=== PATIENT | female | born 1950 | race Caucasian/White ===

== ENCOUNTER 2017-03-15 21:50 | Inpatient (IN) | payer MEDICARE, OTHER ==
[~2017-03-15] VITALS: Ht 160 cm; Wt 77.3 kg
--- NOTE | 2017-03-15 22:16 | ERA ---
ER Documentation Chief Complaint Date/Time DATE: 03/15/17 TIME: 22:16 Chief Complaint HPI 66-year-old female with a history of hypothyroidism on multiple heart valve replacements, and heart failure transferred from [place] emergency room for higher level of care. The patient reportedly fell about 4 days ago at home. She was taken to the ER and diagnosed with a left wrist fracture which was splinted. Her CT had at that time was normal. Yesterday, she had another fall. At That time she had loss of consciousness. She was taken to the ER, where she was found to have a small subdural hemorrhage and subarachnoid hemorrhage. The patient has not been having any vomiting. She does complain of a 6 out of 10 throbbing headache which has not changed. Prior to the patient 's arrival, the neurosurgeon was notified and is expecting the patient here. She denies any focal weakness or numbness. Per her family, she is acting normally. As she is on Coumadin, she received K Centra and vitamin K prior to transfer. ROS All systems reviewed and are negative except as per history of present illness. PMhx/Soc Hx Cardiac Disorders: Yes (Heart failure, valve replacements, AICD) Hx Miscellaneous Medical Probl: Yes (Hypothyroidism, osteoporosis) Hx Alcohol Use: No Hx Substance Use: No Hx Tobacco Use: No FmHx Family History: No diabetes Physical Exam Physical Exam Const: Well-appearing, nontoxic, no apparent distress Head: No hematomas, multiple facial bruises noted Eyes: Normal Conjunctiva PERRLA, EOMI ENT: Normal External Ears, Nose and Mouth. Neck: Full range of motion..~ No meningismus. No C-spine tenderness to palpation. Right clavicle tenderness to palpation with deformity. Resp: Clear to auscultation bilaterally Cardio: Regular rate and rhythm, no murmurs Abd: Soft, non tender, non distended. Normal bowel sounds Skin: Multiple facial bruises Back: No midline or flank tenderness Ext: No cyanosis, bilateral lower extremity pitting edema. Her left upper extremity is in a splint. Neur: Awake and alert and oriented 3, strength and sensations intact in all 4 extremities, cranial nerves intact Psych: Normal Mood and Affect Results 24 hrs Current Medications Medications (Trade) Dose Ordered Sig/Jerica Route PRN Reason Start Time Stop Time Status Last Admin Dose Admin Ondansetron HCl (Zofran Inj) 4 mg Q6H PRN IV NAUSEA AND/OR VOMITING 03/16/17 00:00 UNV Acetaminophen (Tylenol Tab) 650 mg Q6H PRN PO PAIN LEVEL 1-3 OR FEVER 03/16/17 00:00 UNV Morphine Sulfate (morphine) 2 mg Q4H PRN IV PAIN LEVEL 7-10 03/16/17 00:00 UNV Pantoprazole 40 mg 40 mg DAILY@06 IV 03/16/17 06:00 UNV Labetalol HCl/ Sodium Chloride (Normodyne/NS) 200 ml @ 120 mls/hr PER PROTOCOL IV 03/16/17 00:00 UNV Acetaminophen (Tylenol Tab) 650 mg Q4H PRN PO TEMP GREATER THAN 99.6F 03/16/17 00:00 UNV Docusate Sodium (Colace) 100 mg BID PO 03/16/17 09:00 UNV Procedures/MDM Patient's outside imaging and labs were reviewed. I spoke with the admitting doctor, Dr. Rojas, who is aware of the patient and was expecting her arrival. He will admit to the ICU. Other workup will be deferred to the inpatient admitting doctor and neurosurgeon. Currently the patient is hemodynamically and neurologically stable, protecting her airway, with no evidence of increased intracranial pressure. I do not think any further workup in the ED is necessary at this time. Departure Diagnosis: Primary Impression: Subarachnoid hemorrhage, traumatic Qualified Code: S06.6X1A - Traumatic subarachnoid hemorrhage with loss of consciousness of 30 minutes or less, initial encounter Additional Impressions: Subdural hematoma, post-traumatic Qualified Code: S06.5X1A - Post-traumatic subdural hematoma, with loss of consciousness of 30 minutes or less, initial encounter Multiple contusions Closed right clavicular fracture Qualified Code: S42.001A - Closed nondisplaced fracture of right clavicle, unspecified part of clavicle, initial encounter Condition: Serious CHRISTEN RITTER MD Mar 15, 2017 22:16
[2017-03-15 23:00] VITALS: TEMP 99.2
[2017-03-16] VITALS (65 sets, daily range): BP systolic 67–101; BP diastolic 37–70; PULSE 67–104; RESP 15–28; Ht 160 cm; Wt 77.3 kg
[2017-03-16] MEDS ORDERED: morphine 2 MG INJ IV PRN
[2017-03-16] MEDS ORDERED: LABETALOL 200 MG in SOD CHLORIDE 0.9% 160 ML IV SCH ×2
[2017-03-16] MEDS ORDERED: ONDANSETRON 4 MG INJ IV PRN
[2017-03-16] MEDS ORDERED: ACETAMINOPHEN 325 MG TAB PO PRN ×2
[2017-03-16] MEDS ORDERED: METO-429 PO (00:13)
[2017-03-16] MEDS ORDERED: LORA10TA3 PO (00:13)
[2017-03-16] MEDS ORDERED: ERGO500037 PO (00:13)
[2017-03-16] MEDS ORDERED: CALC0.255 PO (00:13)
[2017-03-16] MEDS ORDERED: DENO60DI SQ (00:13)
[2017-03-16] MEDS ORDERED: LEVO125T75 PO (00:13)
[2017-03-16] MEDS ORDERED: FURO40TA4 PO (00:13)
[2017-03-16] MEDS ORDERED: WARF4TAB52 PO (00:13)
[2017-03-16 01:30] LABS: BASOPHILS % 0.7 % (0.0-2.0); EOSINOPHILS # 0.1 10^3/ul (0.0-0.5); EOSINOPHILS % 0.8 % (0.0-7.0); HEMATOCRIT 22.9 % (37.0-47.0); HEMOGLOBIN 7.5 g/dl (12.0-16.0); LYMPHOCYTES # 1.1 10^3/ul (0.8-2.9); LYMPHOCYTES % 17.4 % (15.0-51.0); MEAN CORPUSCULAR HEMOGLOBIN 32.8 pg (29.0-33.0); MEAN CORPUSCULAR HGB CONC 32.8 g/dl (32.0-37.0); MEAN PLATELET VOLUME 9.7 fl (7.4-10.4); MONOCYTE # 0.8 10^3/ul (0.3-0.9); MONOCYTES % 13.7 % (0.0-11.0); NEUTROPHIL # 4.1 10^3/ul (1.6-7.5); NEUTROPHILS % 67.2 % (39.0-77.0); PLATELET COUNT 119 10^3/UL (140-415); RED BLOOD COUNT 2.29 10^6/ul (4.20-5.40); WHITE BLOOD COUNT 6.1 10^3/ul (4.8-10.8)
[2017-03-16 01:59] LABS: CALCIUM 8.5 mg/dl (8.4-10.2); CREATININE 1.34 mg/dl (0.44-1.00); POTASSIUM 3.3 mmol/L (3.5-5.1)
[2017-03-16] MEDS ORDERED: POTASSIUM CHLORIDE 250 ML IVPB ONE (05:00)
[2017-03-16 05:09] LABS: BASOPHILS % 0.6 % (0.0-2.0); EOSINOPHILS # 0.1 10^3/ul (0.0-0.5); EOSINOPHILS % 1.5 % (0.0-7.0); LYMPHOCYTES # 1.2 10^3/ul (0.8-2.9); LYMPHOCYTES % 22.8 % (15.0-51.0); MEAN CORPUSCULAR HEMOGLOBIN 34.5 pg (29.0-33.0); MEAN CORPUSCULAR HGB CONC 33.3 g/dl (32.0-37.0); MEAN CORPUSCULAR VOLUME 103.4 fl (82.0-101.0); MEAN PLATELET VOLUME 10.1 fl (7.4-10.4); MONOCYTE # 0.7 10^3/ul (0.3-0.9); MONOCYTES % 13.1 % (0.0-11.0); NEUTROPHIL # 3.4 10^3/ul (1.6-7.5); NEUTROPHILS % 61.8 % (39.0-77.0); PLATELET COUNT 123 10^3/UL (140-415); RED BLOOD COUNT 2.32 10^6/ul (4.20-5.40); RED CELL DISTRIBUTION WIDTH 17.1 % (11.5-14.5); WHITE BLOOD COUNT 5.4 10^3/ul (4.8-10.8)
--- NOTE | 2017-03-16 05:28 | HP ---
Date/Time of Note Date/Time of Note DATE: 03/16/17 TIME: 04:55 Assessment/Plan VTE Prophylaxis VTE Prophylaxis Intervention: SCD's Lines/Catheters IV [facility] [place] Assessment/Plan Chief Complaint/Hosp Course This is a 66 year female being admitted to the ICU floor for: #1 subarachnoid hemorrhage #2 Syncope/fall #3 mild CHF exacerbation #4 Supratherapeutic INR #5 anemia #6 mechanical heart valves #7 valvular cardiomyopathy/AICD #8 Bilateral lower extremity venous stasis/edema #9 hypothyroidism #10 chronic kidney disease #11 Multiple fractures Plan: Admit to the ICU floor for closer monitoring. Repeat CAT scan at 4 AM approximately 12 hours from initial CAT scan. Neurosurgery on board, Dr. Mortensen. Maintain blood pressure systolic below 160 Serial labs CBC, BMP, type and cross. Lasix received in the ED, will hold further Lasix at this time. Echocardiogram in the a.m. Cardiology consult. Hold Coumadin, vitamin K received. Monitor INR X-rays of left forearm, left wrist, clavicles, right shoulder Resume patient's home medications as clinically indicated. Patient's CODE STATUS is a DNR. DVT and GI prophylaxis: SCDs, Protonix Further treatment strategy will be implemented as per the clinical course Greater than 40 minutes of critical care time was spent on the plan and care of this patient Problems: HPI/ROS Admit Date/Time Admit Date/Time Mar 15, 2017 at 23:44 Hx of Present Illness Chief complaint: Fall This is a 66-year-old female with a history of hypothyroidism and multiple heart valve replacements, and heart failure transferred from [place] emergency room for higher level of care. The patient reportedly fell about 4 days ago at home. She was taken to the ER and diagnosed with a left wrist fracture which was splinted. Her CT had at that time was normal. Yesterday, she had another fall. At That time she had loss of consciousness. She was taken to the ER, where she was found to have a small subdural hemorrhage and subarachnoid hemorrhage. The patient has not been having any vomiting. She does complain of a 6 out of 10 throbbing headache which has not changed. Prior to the patient 's arrival, the neurosurgeon was notified and is accepting the patient here. She denies any focal weakness or numbness. Per her family, she is acting normally. As she is on Coumadin, she received K Centra and vitamin K prior to transfer. Patient does state that she is a DNR. Allergies: Aspirin, ceftriaxone, hydralazine, penicillin Medications: See JOHAN ARENAS Const: As per HPI Eyes : No pain discharge or redness or change in visual acuity ENT: No pain, sore throat, congestion, congestion, dysphagia or discharge Respiratory: No shortness of breath, cough, sputum, wheezing, or pleuritic pain Cardiovascular: No chest pain, palpitation, PND, or edema GI : no change in appetite, abdominal pain, nausea, vomiting, diarrhea, constipation, or change in the color his stool Genitourinary: No dysuria, hematuria, flank pain , discharge or CVA tenderness Musculoskeletal: She does report pain in her left wrist as well as her right clavicle and shoulder Skin: Multiple bruises of the face Neuro: No headache, dizziness, syncope, seizure, focal weakness Endocrine: No polyuria, polydipsia, temperature intolerance Psych: No hallucination, depression, anxiety or suicidal ideation PMH/Family/Social Past Medical History Chronic kidney disease stage III, history of SVT status post ablation, pacemaker , hypothyroidism, hyperlipidemia, hypertension, mitral, aortic, tricuspid valve replacement, valvular cardiomyopathy, AICD placement, group B strep bacteremia, osteoporosis Past Surgical History Heart valve replacement 3, AICD pacemaker placement, cardiac ablation Family History Significant Family History: no pertinent family hx Social History Alcohol Use: none Smoking Status: Never smoker Drug Use: none Exam/Review of Systems Vital Signs Vitals Vital Signs Date Time Temp Pulse Resp B/P Pulse Ox O2 Delivery O2 Flow Rate FiO2 03/16/17 02:28 97.8 70 18 91/45 96 Room Air Exam Exam General: Patient is a well-developed female lying in bed in mild distress from pain HEENT: Multiple bruises of the face Neck: Supple with full range of motion. No rigidity or meningismus Chest: Nontender tender to palpation, underlying pacemaker noted Lungs: Clear to auscultation bilaterally no crackles rales or wheezing Heart: Normal S1-S2, Regular rhythm and rate. Multiple murmurs on auscultation Abdomen: Soft , nontender, nondistended , bowel sounds are present. No guarding no rebound tenderness , No masses or organomegaly. No costovertebral temporal angle mass Extremities: Left wrist in splint, limited and painful range of motion of the right upper extremity Neurologic: Normal mental status, speech normal, cranial nerves II through XII are intact, motor and sensory are intact, no focal weakness Additional Comments Pertinent laboratory findings from transferring facility, please see documentation in the chart for full detail. CBC: White blood cell count 4.1, hemoglobin 10.2, hematocrit 27.2, platelets 166 BMP sodium 134, potassium 3.6, chloride 103, CO2 21, BUN 46, creatinine 1.62 INR 3.4 troponin 0 0.02 BNP 2774 Chest x-ray: Left-sided permanent pacemaker noted. Right lung prominence suspicious for pulmonary. CT of the brain: Small subarachnoid hemorrhage in the right frontal lobe and small subdural hematoma along the lateral aspect of the right temporal lobe KG: Paced rhythm at approximately 70 bpm, QT prolongation. Labs Result Diagram: 03/16/175 03/16/17 012 Medications Medications Current Medications Ondansetron HCl (Zofran Inj) 4 mg Q6H PRN IV NAUSEA AND/OR VOMITING; Start at 00:00 Acetaminophen (Tylenol Tab) 650 mg Q6H PRN PO PAIN LEVEL 1-3 OR FEVER; Start at 00:00 Morphine Sulfate (morphine) 2 mg Q4H PRN IV PAIN LEVEL 7-10; Start 03/16/17 at 00:00 Pantoprazole (Protonix Iv) 40 mg DAILY@06 IV ; Start 03/16/17 at 06:00 Acetaminophen (Tylenol Tab) 650 mg Q4H PRN PO TEMP GREATER THAN 99.6F; Start at 00:00 Docusate Sodium 100 mg 100 mg BID PO ; Start 03/16/17 at 09:00 Potassium Chloride (KCl 40 MEQ/250 ML NS) 250 ml @ 62.5 mls/hr ONCE ONCE IVPB ; Start 03/16/17 at 05:00; Stop 03/16/17 at 08:59; Status JUDITH SAGE Mar 16, 2017 05:07
[2017-03-16] MEDS ORDERED: NORepinephrine 8MG/250 ML (PMX 250 ML ONE (05:41)
[2017-03-16] MEDS: NORepinephrine 8MG/250 ML (PMX 250 ML IV SCH ×3 (05:45→14:40)
[2017-03-16] MEDS ORDERED: SOD CHLORIDE 0.9% 500 ML IV ONE (06:00)
[2017-03-16] MEDS ORDERED: PANTOPRAZOLE 40 MG INJ IV SCH (06:00)
[2017-03-16 06:26] LABS: CALCIUM 8.6 mg/dl (8.4-10.2); CREATININE 1.33 mg/dl (0.44-1.00); POTASSIUM 3.5 mmol/L (3.5-5.1)
[2017-03-16] MEDS: LEVOTHYROXINE 125 MCG TAB PO SCH (07:55)
[2017-03-16] MEDS ORDERED: LIDOCAINE 1% (MPF) 5 ML VIAL SC ONE (08:30)
[2017-03-16 08:37] LABS: INR 1.43; PROTIME 17.5 Sec (12.2-14.2); PT RATIO 1.4
[2017-03-16 08:38] LABS: PARTIAL THROMBOPLASTIN TIME 35.1 Sec (25.0-35.0)
[2017-03-16 08:56] LABS: ALBUMIN 3.3 g/dl (3.3-4.9); BILIRUBIN,INDIRECT 2.5 mg/dl (0-1.1); BILIRUBIN,TOTAL 2.5 mg/dl (0.2-1.3); TOTAL PROTEIN 7.2 g/dl (6.1-8.1)
--- NOTE | 2017-03-16 09:08 | RADRPT ---
PROCEDURE: Noncontrast CT Head. CLINICAL INDICATION: Intracranial hemorrhage TECHNIQUE: Noncontrast CT of the head was obtained. The administered radiation dose was CTDI vol = 43 mGy, DLP = 805 mGy-cm. One or more of the following dose reduction techniques were used: automat ed exposure control, adjustment of the mA and/or kV according to patient size and/or use of iterativ e reconstruction technique. COMPARISON: No pertinent prior examinations were submitted for comparison. FINDINGS: No new at the lowerThe ventricles and cortical sulci are mildly enlarged. There is mild decreased a ttenuation within the periventricular and subcortical white matter compatible with chronic microvasc ular changes. There is small subarachnoid hemorrhage along the right frontal convexity within the precentral sulcu s. Some minimal subarachnoid hemorrhage is also likely insular fissure. There is minimal subdural hemorrhage along the right temporal convexity measuring up to 3 mm in thic kness. There is no significant mass effect. No midline shift is identified. There is no loss of lew-white differentiation to suggest acute infarction. The orbits are within normal limits. Some fluid is noted within the right maxillary sinus. Some mild mucosal thickening is scattered throughout the paranasal sinuses. No destructive osseous lesion is identified. IMPRESSION: Minimal subarachnoid hemorrhage along the right frontal convexity as well as within the right insula r fissure. Small subdural hemorrhage along the right temporal convexity. Mild diffuse parenchymal volume loss and chronic microvascular changes. Findings were discussed with Donal Calle at approximately 03/16/2017 5:37:14 AM. RPTAT: HIKT .Preet Mobley MD, MD Date Time Electronically viewed and signed by .Preet Mobley MD, on 03/16/2017 05:53 .T/
--- NOTE | 2017-03-16 09:42 | RADRPT ---
PROCEDURE: US Carotids. CLINICAL INDICATION: bruit , syncope TECHNIQUE: Multiple sonographic of the carotid bifurcation region and vertebral arteries were obta ined utilizing lew scale, duplex and color-flow imaging. The images were reviewed on a PACS worksta tion. COMPARISON: No prior studies are available for comparison. FINDINGS: Evaluation of the right carotid bifurcation region reveals no significant calcific atherosclerotic d isease. Evaluation of the left carotid bifurcation region reveals no significant calcific atherosclerotic di sease. There is antegrade flow within the vertebral arteries bilaterally. RIGHT CAROTID MEASUREMENTS: Common Carotid Mtadpd93.4 (cm/sec) Internal Carotid Artery - wbmoclle07.3 (cm/sec) Internal Carotid Artery - mid63.3 (cm/sec) Internal Carotid Artery - bbihlq12.7 (cm/sec) Internal Carotid/Common Carotid0.71 LEFT CAROTID MEASUREMENTS: Common Carotid Nzjttv63.3 (cm/sec) Internal Carotid Artery - srcvibby68.8 (cm/sec) Internal Carotid Artery - mid61.6 (cm/sec) Internal Carotid Artery - uztrbd13.4 (cm/sec) Internal Carotid/Common Carotid0.63 RPTAT: AA IMPRESSION: No evidence for hemodynamically significant stenosis in the bilateral internal carotid arteries - va lidated velocity measurements with angiographic measurements, velocity criteria are extrapolated fro m diameter data as defined by the Society of Radiologists in Ultrasound Consensus Conference Radiolo gy 2003; 229;340-346. This study does indirectly reference the measurement of the distal ICA diamet er as the denominator for stenosis measurement. Normal antegrade flow in the vertebral arteries bilaterally. .Beto Monae MD, MD Date Time Electronically viewed and signed by .Beto Monae MD, on 03/16/2017 09:41 .S/
[2017-03-16] MEDS ORDERED: PHYTONADIONE 10 MG in DEXTROSE 5% 50 ML IVPB ONE (10:00)
[2017-03-16] MEDS: DOCUSATE SODIUM 100 MG CAP PO SCH ×2 (10:40→21:43)
--- NOTE | 2017-03-16 11:57 | RADRPT ---
PROCEDURE: XR LEFT WRIST. CLINICAL INDICATION: Follow-up fracture. Fall. TECHNIQUE: Three views of the left wrist were obtained. COMPARISON: No prior studies are available for comparison. FINDINGS: There is a comminuted mildly displaced distal radius fracture. A cast is in place. The fracture is i n good position and alignment. There is displacement of the dorsal cortex seen on the lateral view. No ulnar fracture is identified although the cast does obscure some bony detail. There is probable d iastasis of the scapholunate interval suggesting a scapholunate ligament tear. IMPRESSION: 1. Distal radius fracture in good position and alignment. 2. Probable scapholunate diastasis suggesting a ligament tear. 3. Cast in place. RPTAT: XX .Lamont Pizarro MD, Date Time Electronically viewed and signed by .Lamont Pizarro MD, on 03/16/2017 11:57 .T/
--- NOTE | 2017-03-16 11:59 | RADRPT ---
PROCEDURE: XR Shoulder. CLINICAL INDICATION: Fall. Shoulder pain. TECHNIQUE: Three views of the right shoulder are available for review. COMPARISON: None available FINDINGS: There is a mildly displaced oblique fracture of the lateral distal clavicular shaft. The AC joint i s intact and well aligned. No evidence for shoulder dislocation. The bones are diffusely osteoporoti c. No rib fractures seen. No humeral or scapular fracture is identified. IMPRESSION: 1. Mildly displaced oblique fracture of the lateral clavicular shaft. 2. The AC joint is intact. 3. Osteoporosis. 4. No evidence for humeral fracture. RPTAT: XX .Lamont Pizarro MD, MD Date Time Electronically viewed and signed by .Lamont Pizarro MD, MD on 03/16/2017 11:58 .T/
--- NOTE | 2017-03-16 12:02 | RADRPT ---
PROCEDURE: XR Forearm. CLINICAL INDICATION: Fall. Injury. TECHNIQUE: AP and lateral views of the left forearm were obtained. COMPARISON: No prior studies are available for comparison. FINDINGS: There is a cast in place. There is a distal radius fracture in good position and alignment. There is mild diastasis of the scapholunate interval. No proximal radial or ulnar fracture is identified. No radiopaque foreign body is seen. IMPRESSION: 1. Distal radius fracture in good position and alignment. 2. Scapholunate diastasis most likely representing a ligament tear. RPTAT: XX .Lamont Pizarro MD, MD Date Time Electronically viewed and signed by .Lamont Pizarro MD, on 03/16/2017 12:01 .T/
--- NOTE | 2017-03-16 12:04 | RADRPT ---
PROCEDURE: XR BILATERAL CLAVICLE CLINICAL INDICATION: Fall. Fracture. TECHNIQUE: Two views of the clavicles are available for review. COMPARISON: None available FINDINGS: There is an oblique fracture of the lateral right clavicular shaft with mild displacement. The AC lolita int is intact. No left clavicular fracture is identified. No evidence for left AC separation. IMPRESSION: 1. Mildly displaced oblique fracture of the right lateral clavicular shaft. 2. No evidence for AC separation on either side. 3. No evidence for left clavicular fracture. RPTAT: XX .Lamont Pizarro MD, MD Date Time Electronically viewed and signed by .Lamont Pizarro MD, on 03/16/2017 12:04 .T/
--- NOTE | 2017-03-16 12:51 | RADRPT ---
Echocardiogram Report Patient Name: DAYANA ADAMS Gender: Female Date: 1950 Study Date: 16-Mar-2017 [place]ailings Man: Steve Emerson RDCS Location: [address] [place] [address]. Physician: JUDITH SOLANO Quality: Good Procedures: Transthoracic echocardiogram with complete 2D, M-Mode, and doppler examination. Indications: hemmorrhage, mutiple mechanical valves. 2D/M Mode Doppler Measurement Value Normal Ranges Measurement Value Normal Ranges LVIDd 2D 5.6 3.5 - 5.6 cm CARISA Vmax 0.9 cm2 LVIDs 2D 5.0 2.1 - 4.1 cm CARISA VTI 0.9 cm2 LVPWd 2D 1.0 0.6 - 1.1 cm AV Mean Dewayne 2.5 m/sec IVSd 2D 0.9 0.6 - 1.1 cm AV Mean PG 27.9 mmHg AoR Diam 2D 2.6 2.0 - 3.7 cm AV Peak Dewayne 3.7 m/sec EDV 2D 153.2 cm3 AV Peak PG 53.7 mmHg ESV 2D 127.1 cm3 AV VTI 69.9 cm LA Dimen 2D 5.7 2.3 - 4.0 cm LVOT Mean Dewayne 0.8 m/sec LVOT Diam 1.9 cm LVOT Mean PG 3.2 mmHg LVOT Peak Dewayne 1.2 m/sec LVOT Peak PG 5.7 mmHg LVOT VTI 25.4 cm MV Peak Dewayne 2.3 m/sec MV Peak PG 22.0 mmHg MV Mean Dewayne 1.1 m/sec MV Mean PG 7.2 mmHg MV VTI 46.3 cm MVA VTI 1.5 cm TR Peak Dewayne 3.4 m/sec TR Peak PG 46.6 mmHg RVSP 57.0 mmHg Findings Left Ventricle: Normal left ventricular wall thickness. Mild enlargement of left ventricle cavity. Severe left ventricular systolic dysfunction. Ejection fraction is visually estimated at 20 %. Tissue Doppler/Mitral Doppler indices are indeterminate in this study due to the presence of mitral valve replacement. Right Ventricle: Normal right ventricular size. Moderate right ventricular hypokinesis. Linear artifact in right ventricle suggestive of catheter, pacer lead, or ICD lead. Left Atrium: There is severe enlargement of left atrium. Right Atrium: There is mild enlargement of right atrium. Mitral Valve: Trace mitral regurgitation. Mitral Valve Mechanical Prosthesis. Mitral valve Max Velocity 2.35 m/sec. MaxPG 22.00 mmHg. MeanPG 7.20 mmHg. Aortic Valve: Aortic valve not well visualized. Aortic Valve Bio Prosthesis. Aortic valve Max velocity 3.66 m/sec. Max PG 53.70 mmHg. Mean PG 27.90 mmHg. Mild to moderate aortic valve regurgitation. Tricuspid Valve: Estimated peak PA systolic pressure 57 mmHg. Pulmonic Valve: Normal pulmonic valve appearance. There is trace pulmonic regurgitation. Pericardium: Normal pericardium with no significant pericardial effusion. Aorta: Normal aortic root. IVC: Normal size and no respiratory collapse consistent with elevated right atrial pressure. Conclusions 1.There is severe enlargement of left atrium. 2.Trace mitral regurgitation. Mitral Valve Mechanical Prosthesis. Mitral valve Max Velocity 2.35 m/sec. MaxPG 22.00 mmHg. MeanPG 7.20 mmHg. 3.Aortic valve not well visualized. Aortic Valve Bio Prosthesis. Aortic valve Max velocity 3.66 m/sec. Max PG 53.70 mmHg. Mean PG 27.90 mmHg. Mild to moderate aortic valve regurgitation. 4.Estimated peak PA systolic pressure 57 mmHg. 5.Normal left ventricular wall thickness. Mild enlargement of left ventricle cavity. Severe left ventricular systolic dysfunction. Ejection fraction is visually estimated at 20 %. Tissue Doppler/Mitral Doppler indices are indeterminate in this study due to the presence of mitral valve replacement. 6.There is mild enlargement of right atrium. Electronically Signed By: Aydin Pruett 16-Mar-2017 12:51:10 -6500 Patient Name: DAYANA AADMS Study Date: 16-Mar-2017 [id number]
--- NOTE | 2017-03-16 17:51 | RADRPT ---
PROCEDURE: XR Chest. CLINICAL INDICATION: Shortness of breath. TECHNIQUE: Single frontal view. COMPARISON: Clavicle radiographs dated 03/16/2017. FINDINGS: There is mild interstitial disease bilaterally consistent with pulmonary edema. The lungs are otherw ise clear. The heart is enlarged. There are sternal wires. There is a a left-sided dual lead permanent pacemake r/internal cardiac defibrillator. There are small bilateral pleural effusions. There is no pneumothorax. IMPRESSION: 1. Mild pulmonary edema. 2. Cardiomegaly. 3. Previous median sternotomy. 4. Permanent pacemaker/internal cardiac defibrillator. 5. Small bilateral pleural effusions. RPTAT: QQ .Kenny Chaudhari MD, MD Date Time Electronically viewed and signed by .Kenny Chaudhari MD, MD on 03/16/2017 17:51 .R/
--- NOTE | 2017-03-16 23:57 | RADRPT ---
PROCEDURE: Noncontrast CT Head. CLINICAL INDICATION: Intracranial hemorrhage.. TECHNIQUE: Noncontrast CT of the head was obtained. The administered radiation dose was CTDI vol = 40.38 mGy, DLP = 827.05 mGy-cm. One or more of the following dose reduction techniques were used: Au tomated exposure control, Adjustment of the mA and/or kV according to patient size, or Use of iterat rodney reconstruction technique. COMPARISON: Noncontrast CT of the head from the same day at 03:58 a.m. FINDINGS: The ventricles and sulci are within normal limits. There is minimal periventricular hypoattenuation suggesting chronic microvascular ischemic changes. There are mild vascular calcifications within t he intracranial carotid arteries. There is mild acute subarachnoid hemorrhage again noted within the right frontal lobe. There is also improved trace right temporal subdural hemorrhage. There is no loss of lew-white differentiation to suggest acute territorial infarction. No midline shift is identified. The orbits are within normal limits. There is mild right maxillary sinus mucosal thickening. There is mild left and minimal right ethmoid sinus mucosal thickening. There is mild right sphenoid sinus mucosal thickening. No destructive osseous lesion is identified. IMPRESSION: 1. Stable mild acute right frontal subarachnoid hemorrhage. 2. Improved trace right temporal subdural hemorrhage. 3. Minimal chronic microvascular ischemic changes. Further findings as detailed above. RPTAT: HVF .Brian Youngblood MD, Date Time Electronically viewed and signed by .Brian Youngblood MD, on 03/16/2017 23:57 .F/
[2017-03-17] VITALS (12 sets, daily range): BP systolic 86–117; BP diastolic 51–78; PULSE 68–85; RESP 16–20
[2017-03-17] MEDS: LEVOTHYROXINE 125 MCG TAB PO SCH (06:34)
[2017-03-17] MEDS: DOCUSATE SODIUM 100 MG CAP PO SCH ×2 (09:00→20:40)
[2017-03-17] MEDS ORDERED: FAMOTIDINE 20 MG INJ IV SCH (09:00)
[2017-03-17 10:55] LABS: IRON 116 ug/dl (35-150)
[2017-03-17 11:05] LABS: TOTAL IRON BINDING CAPACITY 338 ug/dl (241-421)
[2017-03-17 12:02] LABS: ALBUMIN/GLOBULIN RATIO 0.83; BILIRUBIN,INDIRECT 2.8 mg/dl (0-1.1); BILIRUBIN,TOTAL 2.8 mg/dl (0.2-1.3); CALCIUM 8.7 mg/dl (8.4-10.2); CREATININE 1.22 mg/dl (0.44-1.00); POTASSIUM 3.9 mmol/L (3.5-5.1); TOTAL PROTEIN 6.6 g/dl (6.1-8.1)
--- NOTE | 2017-03-17 12:31 | CONS ---
Date/Time of Note Date/Time of Note DATE: 03/17/17 TIME: 12:24 Assessment/Plan Assessment/Plan Chief Complaint/Hosp Course 66 year old female with history of multiple valve replacements, heart failure on Coumadin prior to arrival admitted with fall without LOC or seizure activity described. Stable right frontal SDH and right temporal SAH. -traumatic SDH/ SAH -reversal with Vitamin K given prior to transfer, repeat Head CT shows stability no indication for AED ppx -obtain further history from family regarding fall, if syncope would evaluate with repeat ECHO , orthostatic hypotension continue to hold AC, neurosurgery already consulted -DVT ppx SCD -PT/OT/Speech will follow Problems: Consultation Date/Type/Reason Admit Date/Time Mar 15, 2017 at 23:44 Date of Consultation: Mar 17, 2017 Type of Consultation: Neurology Reason for Consultation SDH on coumadin Referring Provider: JENSEN VILLALOBOS MD Hx of Present Illness 66 year old female with history of hypothyroidism ,multiple heart valve replacements, heart failure tx from [facility] after she had a fall over 4 days ago at home. She was dx with left wrist fracture, splinted reportedly Head CT normal at that time. She had another fall at home was found to have right frontal SDH and right temporal SAH. She has bruising throughout her face and left arm weakness from wrist fracture, denies any active headaches at this time , no history of seizures. She received [facility] Vitamin K prior to transfer. Repeat Head CT: Minimal subarachnoid hemorrhage along the right frontal convexity as well as within the right insular fissure. Small subdural hemorrhage along the right temporal convexity. Mild diffuse parenchymal volume loss and chronic microvascular changes. left arm pain Social History Alcohol Use: none Smoking Status: Never smoker Drug Use: none Exam/Review of Systems Vital Signs Vitals Vital Signs Date Time Temp Pulse Resp B/P Pulse Ox O2 Delivery O2 Flow Rate FiO2 03/17/17 12:10 68 03/17/17 11:38 98.3 18 86/51 97 03/16/17 20:00 Room Air Intake and Output 03/16/17 03/16/17 03/17/17 15:00 23:00 07:00 Intake Total 202.500 ml 0 ml 400 ml Output Total 750 ml 200 ml Balance -547.500 ml -200 ml 400 ml Exam awake alert oriented to self hospital date is Jun 2016 follows commands naming objects well CN: II-XII grossly intact Motor: right arm and leg 5/5 throughout left wrist weakness from fracture strength 3/5 left arm and lle can lift anti- gravity Sensory intact throughout Coordination intact on right FTN Results Result Diagram: 03/16/17 0441 03/17/17 0937 Results 24 hrs Laboratory Tests Test 03/17/17 09:37 Sodium Level 139 Potassium Level 3.9 Chloride Level 108 Carbon Dioxide Level 23 Anion Gap 12 Blood Urea Nitrogen 40 H Creatinine 1.22 H Glucose Level 94 Calcium Level 8.7 Iron Level 116 Total Iron Binding Capacity 338 Percent Iron Saturation 34 Ferritin 85.7 Total Bilirubin 2.8 H Direct Bilirubin 0.00 Indirect Bilirubin 2.8 H Aspartate Amino Transf (AST/SGOT) 30 Alanine Aminotransferase (ALT/SGPT) 16 Alkaline Phosphatase 84 Total Protein 6.6 Albumin 3.0 L Globulin 3.60 H Albumin/Globulin Ratio 0.83 Medications Medications Current Medications Ondansetron HCl (Zofran Inj) 4 mg Q6H PRN IV NAUSEA AND/OR VOMITING; Start at 00:00 Acetaminophen (Tylenol Tab) 650 mg Q6H PRN PO PAIN LEVEL 1-3 OR FEVER; Start at 00:00 Morphine Sulfate (morphine) 2 mg Q4H PRN IV PAIN LEVEL 7-10; Start 03/16/17 at 00:00 Acetaminophen (Tylenol Tab) 650 mg Q4H PRN PO TEMP GREATER THAN 99.6F; Start at 00:00 Docusate Sodium (Colace) 100 mg BID PO Last administered on 03/16/17 21:43; Admin Dose 100 MG; Start 03/16/17 at 09:00 Famotidine (Pepcid Iv) 20 mg DAILY IV Last administered on 03/17/17 09:31; Admin Dose 20 MG; Start 03/17/17 at 09:00 ROSARIO BEST MD Mar 17, 2017 12:31
[2017-03-17 13:08] LABS: FOLATE 7.7 ng/ml (2.8-20.0)
[2017-03-17] MEDS: FUROSEMIDE 40 MG TAB PO SCH ×2 (13:25→17:42)
--- NOTE | 2017-03-17 14:38 | CONS ---
Date/Time of Note Date/Time of Note DATE: 03/17/17 TIME: 14:38 Assessment/Plan Assessment/Plan Chief Complaint/Hosp Course Assessment: Status post fall x 2 - possible syncope Small subarachnoid hemorrhage and small subdural hematoma - secondary to trauma from fall, per neurosurgery and neurology Left wrist fracture and right clavicle fracture Valvular cardiomyopathy and chronic systolic heart failure - LVEF 20% on echocardiogram, clinically compensated Mechanical aortic valve replacement - moderately increased transvalvular gradient (PV 3.7 m/s, MG 28 mmHg) Mechanical mitral valve replacement - moderately increased transvalvular gradient (MG 7.2 mmHg) Bioprosthetic tricuspid valve replacement - severely increased transvalvular gradient (MG 12.9 mmHg, PG 23.5 mmHg) History of ventricular fibrillation, dual-chamber ICD in situ ([employer]) Chronic kidney disease Hypothyroidism Recommendations: -warfarin on hold, resume when intracranial bleed stabilized -continue outpatient Lasix 40mg BID -echocardiogram reviewed (results summarized above) -interrogate ICD -patient is not a candidate for cardiac surgery due to two prior sternotomies, advanced age, and frailty -she is being evaluated for transcatheter intervention on the tricuspid valve at [facility] (aortic and mitral valves are mechanical and not amenable to transcatheter intervention), though this will be of uncertain benefit in the big picture - can resume work up at [facility] as an outpatient Problems: Consultation Date/Type/Reason Admit Date/Time Mar 15, 2017 at 23:44 Type of Consultation: Cardiology Hx of Present Illness The patient is a 66 year-old female who was transferred from the emergency department at [facility] for management of intracranial bleeding. The patient reports falling after tripping over the sliding door while at the [employer] last . She denies loss of consciousness at that time. She did not seek medical attention until Wednesday, when she went to the emergency department at [facility]. She was found to have a left wrist fracture, which was splinted. Head CT at the time was reportedly normal. She fell again while walking to the backyard at home on Wednesday. This resulted in head trauma and brief loss of consciousness. She is uncertain if she lost consciousness prior to or after the fall. She denies any chest pain, shortness of breath, or palpitations. Head CT in the emergency department here showed a small subarachnoid hemorrhage and small subdural hematoma, which was stable on repeat head CT 4 hours later. She is being followed by neurosurgery and neurology. With regards to her cardiac history, the patient is status post mechanical aortic valve replacement, mechanical mitral valve replacement, and bioprosthetic tricuspid valve replacement. These were done during two separate surgeries in the while in [place]. In 2009, the patient had ventricular fibrillation and underwent implantation of a dual-chamber ICD ([employer]). In August 2015, she underwent AVNRT radiofrequency ablation. She is known to have valvular cardiomyopathy with a left ventricular ejection fraction of <20%. 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 Her outpatient line analyst is at [facility]. 14 point review of systems negative other than per HPI. Past Medical History Valvular cardiomyopathy, LVEF <20% Mechanical aortic valve replacement Mechanical mitral valve replacement Bioprosthetic tricuspid valve replacement History of ventricular fibrillation, dual-chamber ICD in situ ([employer]) Chronic kidney disease Hypothyroidism Past Surgical History Past Surgical Hx: other (sternotomy x 2) Family History Significant Family History: no pertinent family hx Social History Alcohol Use: none Smoking Status: Never smoker Drug Use: none Exam/Review of Systems Vital Signs Vitals Vital Signs Date Time Temp Pulse Resp B/P Pulse Ox O2 Delivery O2 Flow Rate FiO2 03/17/17 12:10 68 03/17/17 11:38 98.3 18 86/51 97 03/16/17 20:00 Room Air Intake and Output 03/16/17 03/16/17 03/17/17 15:00 23:00 07:00 Intake Total 202.500 ml 0 ml 400 ml Output Total 750 ml 200 ml Balance -547.500 ml -200 ml 400 ml Exam Constitutional: alert, frail, No distress Psych: nl mood/affect, no complaints Head: atraumatic, normocephalic Eyes: nl conjunctiva, nl lids ENMT: nl external ears & nose, nl nasal mucosa & septum Neck: jvd, supple Respiratory: clear to auscultation, No wheezing Cardiovascular: diastolic murmur, other (mechanical S1 and S2), regular rate and rhythm, systolic murmur Gastrointestinal: non-tender, soft Musculoskeletal: nl extremities to inspection Extremities: edema (bilateral lower extremity), No clubbing, No cyanosis Neurological: nl mental status, nl speech Results Result Diagram: 03/16/17 0441 03/17/17 0937 Results 24 hrs Laboratory Tests Test 03/17/17 09:37 Sodium Level 139 Potassium Level 3.9 Chloride Level 108 Carbon Dioxide Level 23 Anion Gap 12 Blood Urea Nitrogen 40 H Creatinine 1.22 H Glucose Level 94 Calcium Level 8.7 Iron Level 116 Total Iron Binding Capacity 338 Percent Iron Saturation 34 Ferritin 85.7 Total Bilirubin 2.8 H Direct Bilirubin 0.00 Indirect Bilirubin 2.8 H Aspartate Amino Transf (AST/SGOT) 30 Alanine Aminotransferase (ALT/SGPT) 16 Alkaline Phosphatase 84 Total Protein 6.6 Albumin 3.0 L Globulin 3.60 H Albumin/Globulin Ratio 0.83 Vitamin B12 Level 700 Folate 7.7 Medications Medications Current Medications Ondansetron HCl (Zofran Inj) 4 mg Q6H PRN IV NAUSEA AND/OR VOMITING; Start at 00:00 Acetaminophen (Tylenol Tab) 650 mg Q6H PRN PO PAIN LEVEL 1-3 OR FEVER; Start at 00:00 Morphine Sulfate (morphine) 2 mg Q4H PRN IV PAIN LEVEL 7-10; Start 03/16/17 at 00:00 Acetaminophen (Tylenol Tab) 650 mg Q4H PRN PO TEMP GREATER THAN 99.6F; Start at 00:00 Docusate Sodium (Colace) 100 mg BID PO Last administered on 03/16/17 21:43; Admin Dose 100 MG; Start 03/16/17 at 09:00 Famotidine (Pepcid Iv) 20 mg DAILY IV Last administered on 03/17/17 09:31; Admin Dose 20 MG; Start 03/17/17 at 09:00 GINA HAY MD Mar 17, 2017 14:38
--- NOTE | 2017-03-17 15:10 | PN ---
Date/Time of Note Date/Time of Note DATE: 03/17/17 TIME: 15:03 Assessment/Plan VTE Prophylaxis VTE Prophylaxis Intervention: contraindicated, SCD's Lines/Catheters IV Catheter Type (from Nrs): Saline Lock Urinary Cath still in place: No Assessment/Plan Chief Complaint/Hosp Course 66 yo female with chronic systolic CHF, s/p AVR/MVR/TVR who presents with recurrent syncope leading to wrist fracture and small subdural hematoma as well as acute on chornic CHF exacerbation CHF: - Restart diuretics, 40 PO BID is her home dose, she is hypervolemic now and slightly tachypneic - Hold BB and NATASHA given hypotension and orthostatic syncope Mechanical MV, AV - Holding AC given SDH, will have to readdress in coming days as high stroke risk from vavlves Syncope: - Clearly orthostatic by history and marked baseline hypotension. Likely 2/2 low EF and aortic stenosis. She is planned for TAVR at [facility]. May be best to transfer her there for the procedure if felt by cardiology that it will improve her syncopal symptoms SDH: - Small, no neuro deficits - Stable on imaging - Hold AC, no need for AEDs Anemia: - Unclear etiology, normal iron stores - Per discussion with Maricel Weldon MD, she had normal endoscopy in the past year - B12/folate pending Discharge plan pending Problems: Subjective 24 Hr Interval Summary Free Text/Dictation Says she is feeling better today than yesterday No headache No focal weakness No SOB she reports TTE shows low EF, pros valves Exam/Review of Systems Vital Signs Vitals Vital Signs Date Time Temp Pulse Resp B/P Pulse Ox O2 Delivery O2 Flow Rate FiO2 03/17/17 12:10 68 03/17/17 11:38 98.3 18 86/51 97 03/16/17 20:00 Room Air Intake and Output 03/16/17 03/16/17 03/17/17 15:00 23:00 07:00 Intake Total 202.500 ml 0 ml 400 ml Output Total 750 ml 200 ml Balance -547.500 ml -200 ml 400 ml Exam Alert, AOx3 Ecchymosis to face from trauma ++++ JVD Systolic murmur present 2/6 valves click Decreased sounds at lung bases, nonlabored, no crackles No peripheral edema L arm in sling Results Result Diagram: 03/16/17 0441 03/17/17 0937 Results 24 hrs Laboratory Tests Test 03/17/17 09:37 Sodium Level 139 Potassium Level 3.9 Chloride Level 108 Carbon Dioxide Level 23 Anion Gap 12 Blood Urea Nitrogen 40 H Creatinine 1.22 H Glucose Level 94 Calcium Level 8.7 Iron Level 116 Total Iron Binding Capacity 338 Percent Iron Saturation 34 Ferritin 85.7 Total Bilirubin 2.8 H Direct Bilirubin 0.00 Indirect Bilirubin 2.8 H Aspartate Amino Transf (AST/SGOT) 30 Alanine Aminotransferase (ALT/SGPT) 16 Alkaline Phosphatase 84 Total Protein 6.6 Albumin 3.0 L Globulin 3.60 H Albumin/Globulin Ratio 0.83 Vitamin B12 Level 700 Folate 7.7 Medications Medications Current Medications Ondansetron HCl (Zofran Inj) 4 mg Q6H PRN IV NAUSEA AND/OR VOMITING; Start at 00:00 Acetaminophen (Tylenol Tab) 650 mg Q6H PRN PO PAIN LEVEL 1-3 OR FEVER; Start at 00:00 Morphine Sulfate (morphine) 2 mg Q4H PRN IV PAIN LEVEL 7-10; Start 03/16/17 at 00:00 Acetaminophen (Tylenol Tab) 650 mg Q4H PRN PO TEMP GREATER THAN 99.6F; Start at 00:00 Docusate Sodium (Colace) 100 mg BID PO Last administered on 03/16/17 21:43; Admin Dose 100 MG; Start 03/16/17 at 09:00 Famotidine (Pepcid Iv) 20 mg DAILY IV Last administered on 03/17/17 09:31; Admin Dose 20 MG; Start 03/17/17 at 09:00 JENSEN VILLALOBOS MD Mar 17, 2017 15:10
[2017-03-18] VITALS (12 sets, daily range): BP systolic 86–100; BP diastolic 50–56; PULSE 80–108; RESP 15–18
[2017-03-18] MEDS: FUROSEMIDE 40 MG TAB PO SCH ×2 (05:56→17:00)
[2017-03-18] MEDS: PANTOPRAZOLE (EC) 40 MG TAB PO SCH (05:57)
[2017-03-18] MEDS: LEVOTHYROXINE 125 MCG TAB PO SCH (06:32)
[2017-03-18 07:51] LABS: BASOPHILS % 0.8 % (0.0-2.0); EOSINOPHILS # 0.2 10^3/ul (0.0-0.5); EOSINOPHILS % 5.7 % (0.0-7.0); HEMATOCRIT 22.5 % (37.0-47.0); HEMOGLOBIN 7.6 g/dl (12.0-16.0); LYMPHOCYTES # 0.9 10^3/ul (0.8-2.9); LYMPHOCYTES % 24.6 % (15.0-51.0); MEAN CORPUSCULAR HGB CONC 33.8 g/dl (32.0-37.0); MEAN CORPUSCULAR VOLUME 103.7 fl (82.0-101.0); MEAN PLATELET VOLUME 10.2 fl (7.4-10.4); MONOCYTE # 0.6 10^3/ul (0.3-0.9); MONOCYTES % 16.5 % (0.0-11.0); NEUTROPHIL # 1.9 10^3/ul (1.6-7.5); NEUTROPHILS % 52.1 % (39.0-77.0); PLATELET COUNT 125 10^3/UL (140-415); RED BLOOD COUNT 2.17 10^6/ul (4.20-5.40); RED CELL DISTRIBUTION WIDTH 17.3 % (11.5-14.5); WHITE BLOOD COUNT 3.7 10^3/ul (4.8-10.8)
[2017-03-18 08:07] LABS: ALBUMIN/GLOBULIN RATIO 0.76; BILIRUBIN,INDIRECT 2.8 mg/dl (0-1.1); BILIRUBIN,TOTAL 2.8 mg/dl (0.2-1.3); CALCIUM 8.3 mg/dl (8.4-10.2); CREATININE 1.21 mg/dl (0.44-1.00); POTASSIUM 3.3 mmol/L (3.5-5.1); TOTAL PROTEIN 6.9 g/dl (6.1-8.1)
[2017-03-18] MEDS: DOCUSATE SODIUM 100 MG CAP PO SCH ×2 (09:00→20:26)
--- NOTE | 2017-03-18 11:32 | CONS ---
Date/Time of Note Date/Time of Note DATE: 03/18/17 TIME: 11:29 Consult Date/Type/Reason Admit Date/Time Mar 15, 2017 at 23:44 Initial Consult Date 03/17/17 Type of Consultation: Neurology Reason for Consultation evaluation for SDH, SAH Ordering Provider: JENSEN VILLALOBOS MD Subjective stable no overnight issues Objective Vital Signs Date Time Temp Pulse Resp B/P Pulse Ox O2 Delivery O2 Flow Rate FiO2 03/18/17 08:23 80 03/18/17 08:04 98.6 18 86/51 96 03/16/17 20:00 Room Air Intake and Output 03/17/17 03/17/17 03/18/17 15:00 23:00 07:00 Intake Total 700 ml 300 ml Balance 700 ml 300 ml Exam awake alert oriented to self hospital date is Jun 2016 follows commands naming objects well CN: II-XII grossly intact Motor: right arm and leg 5/5 throughout left wrist weakness from fracture strength 3/5 left arm and lle can lift anti- gravity Sensory intact throughout Coordination intact on right FTN Results/Medications Result Diagram: 03/18/1772003/18/1721 Results 24 hrs Laboratory Tests Test 03/17/17 13:40 03/18/17 07:21 Haptoglobin <15 L Lactate Dehydrogenase 677 H White Blood Count 3.7 #L Red Blood Count 2.17 L Hemoglobin 7.6 L Hematocrit 22.5 L Mean Corpuscular Volume 103.7 H Mean Corpuscular Hemoglobin 35.0 H Mean Corpuscular Hemoglobin Concent 33.8 Red Cell Distribution Width 17.3 H Platelet Count 125 L Mean Platelet Volume 10.2 Neutrophils % 52.1 Lymphocytes % 24.6 Monocytes % 16.5 H Eosinophils % 5.7 Basophils % 0.8 Nucleated Red Blood Cells % 0.0 Neutrophils # 1.9 Lymphocytes # 0.9 Monocytes # 0.6 Eosinophils # 0.2 Basophils # 0.0 Nucleated Red Blood Cells # 0.0 Sodium Level 139 Potassium Level 3.3 L Chloride Level 108 Carbon Dioxide Level 23 Anion Gap 11 Blood Urea Nitrogen 35 H Creatinine 1.21 H Glucose Level 90 Calcium Level 8.3 L Total Bilirubin 2.8 H Direct Bilirubin 0.00 Indirect Bilirubin 2.8 H Aspartate Amino Transf (AST/SGOT) 28 Alanine Aminotransferase (ALT/SGPT) 22 Alkaline Phosphatase 89 Total Protein 6.9 Albumin 3.0 L Globulin 3.90 H Albumin/Globulin Ratio 0.76 Medications Current Medications Ondansetron HCl (Zofran Inj) 4 mg Q6H PRN IV NAUSEA AND/OR VOMITING; Start at 00:00 Acetaminophen (Tylenol Tab) 650 mg Q6H PRN PO PAIN LEVEL 1-3 OR FEVER; Start at 00:00 Morphine Sulfate (morphine) 2 mg Q4H PRN IV PAIN LEVEL 7-10; Start 03/16/17 at 00:00 Acetaminophen (Tylenol Tab) 650 mg Q4H PRN PO TEMP GREATER THAN 99.6F; Start at 00:00 Docusate Sodium (Colace) 100 mg BID PO Last administered on 03/16/17 21:43; Admin Dose 100 MG; Start 03/16/17 at 09:00 Pantoprazole (Protonix Tab) 40 mg DAILY@06 PO Last administered on 03/18/17 05 :57; Admin Dose 40 MG; Start 03/18/17 at 06:00 Assessment/Plan Chief Complaint/Hosp Course 66 year old female with history of multiple valve replacements, heart failure on Coumadin prior to arrival admitted with fall without LOC or seizure activity described. Stable right frontal SDH and right temporal SAH. No indication for AED ppx. Orthostatic being evaluated for possible valve replacement if she is candidate would recommend repeat CTH in about one week to determine if safe to resume anticoagulation, neurosurgery follow up -DVT ppx SCD -PT/OT/Speech will follow Problems: ROSARIO BEST MD Mar 18, 2017 11:32
--- NOTE | 2017-03-18 14:19 | CONS ---
Date/Time of Note Date/Time of Note DATE: 03/18/17 TIME: 14:18 Assessment/Plan Assessment/Plan Chief Complaint/Hosp Course Assessment: Status post fall x 2 - possible syncope, ICD interrogated with normal function and no events Small subarachnoid hemorrhage and small subdural hematoma - secondary to trauma from fall, per neurosurgery and neurology Left wrist fracture and right clavicle fracture Valvular cardiomyopathy and chronic systolic heart failure - LVEF 20% on echocardiogram, clinically compensated Mechanical aortic valve replacement - moderately increased transvalvular gradient (PV 3.7 m/s, MG 28 mmHg) Mechanical mitral valve replacement - moderately increased transvalvular gradient (MG 7.2 mmHg) Bioprosthetic tricuspid valve replacement - severely increased transvalvular gradient (MG 12.9 mmHg, PG 23.5 mmHg) History of ventricular fibrillation, dual-chamber ICD in situ ([employer]) Chronic kidney disease Hypothyroidism Recommendations: -warfarin on hold, resume when intracranial bleed stabilized -continue outpatient Lasix 40mg BID -echocardiogram reviewed (results summarized above) -patient is not a candidate for cardiac surgery due to two prior sternotomies, advanced age, and frailty -she is being evaluated for transcatheter intervention on the tricuspid valve at [facility] (aortic and mitral valves are mechanical and not amenable to transcatheter intervention), though this will be of uncertain benefit in the big picture - can resume work up at [facility] as an outpatient -no additional cardiac work up at this time, discharge planning per primary team Problems: Consultation Date/Type/Reason Admit Date/Time Mar 15, 2017 at 23:44 Initial Consult Date 03/17/17 Type of Consultation: Cardiology 24 HR Interval Summary Free Text/Dictation ICD interrogated, normal function and no events. Detailed Summary Additional Comments 14 point review of systems without changes. Exam/Review of Systems Vital Signs Vitals Vital Signs Date Time Temp Pulse Resp B/P Pulse Ox O2 Delivery O2 Flow Rate FiO2 03/18/17 12:14 80 03/18/17 11:46 98.2 18 95/50 99 03/16/17 20:00 Room Air Intake and Output 03/17/17 03/17/17 03/18/17 15:00 23:00 07:00 Intake Total 700 ml 300 ml Balance 700 ml 300 ml Exam Constitutional: alert, frail, No distress Psych: nl mood/affect, no complaints Head: atraumatic, normocephalic Eyes: nl conjunctiva, nl lids ENMT: nl external ears & nose, nl nasal mucosa & septum Neck: jvd, supple Respiratory: clear to auscultation, No wheezing Cardiovascular: diastolic murmur, other (mechanical S1 and S2), regular rate and rhythm, systolic murmur Gastrointestinal: non-tender, soft Musculoskeletal: nl extremities to inspection Extremities: edema (bilateral lower extremity), No clubbing, No cyanosis Neurological: nl mental status, nl speech Results Result Diagram: 03/18/17 0721 03/18/17 0721 Results 24 hrs Laboratory Tests Test 03/18/17 07:21 White Blood Count 3.7 #L Red Blood Count 2.17 L Hemoglobin 7.6 L Hematocrit 22.5 L Mean Corpuscular Volume 103.7 H Mean Corpuscular Hemoglobin 35.0 H Mean Corpuscular Hemoglobin Concent 33.8 Red Cell Distribution Width 17.3 H Platelet Count 125 L Mean Platelet Volume 10.2 Neutrophils % 52.1 Lymphocytes % 24.6 Monocytes % 16.5 H Eosinophils % 5.7 Basophils % 0.8 Nucleated Red Blood Cells % 0.0 Neutrophils # 1.9 Lymphocytes # 0.9 Monocytes # 0.6 Eosinophils # 0.2 Basophils # 0.0 Nucleated Red Blood Cells # 0.0 Sodium Level 139 Potassium Level 3.3 L Chloride Level 108 Carbon Dioxide Level 23 Anion Gap 11 Blood Urea Nitrogen 35 H Creatinine 1.21 H Glucose Level 90 Calcium Level 8.3 L Total Bilirubin 2.8 H Direct Bilirubin 0.00 Indirect Bilirubin 2.8 H Aspartate Amino Transf (AST/SGOT) 28 Alanine Aminotransferase (ALT/SGPT) 22 Alkaline Phosphatase 89 Total Protein 6.9 Albumin 3.0 L Globulin 3.90 H Albumin/Globulin Ratio 0.76 Medications Medications Current Medications Ondansetron HCl (Zofran Inj) 4 mg Q6H PRN IV NAUSEA AND/OR VOMITING; Start at 00:00 Acetaminophen (Tylenol Tab) 650 mg Q6H PRN PO PAIN LEVEL 1-3 OR FEVER; Start at 00:00 Morphine Sulfate (morphine) 2 mg Q4H PRN IV PAIN LEVEL 7-10; Start 03/16/17 at 00:00 Acetaminophen (Tylenol Tab) 650 mg Q4H PRN PO TEMP GREATER THAN 99.6F; Start at 00:00 Docusate Sodium (Colace) 100 mg BID PO Last administered on 03/16/17 21:43; Admin Dose 100 MG; Start 03/16/17 at 09:00 Pantoprazole (Protonix Tab) 40 mg DAILY@06 PO Last administered on 03/18/17 05 :57; Admin Dose 40 MG; Start 03/18/17 at 06:00 GINA HAY MD Mar 18, 2017 14:19
--- NOTE | 2017-03-18 16:07 | PN ---
Date/Time of Note Date/Time of Note DATE: 03/18/17 TIME: 16:02 Assessment/Plan VTE Prophylaxis VTE Prophylaxis Intervention: contraindicated, SCD's Lines/Catheters IV Catheter Type (from Nrsg): Saline Lock Urinary Cath still in place: No Assessment/Plan Chief Complaint/Hosp Course 66 yo female with chronic systolic CHF, s/p AVR/MVR/TVR who presents with recurrent syncope leading to wrist fracture and small subdural hematoma as well as acute on chornic CHF exacerbation CHF: - Restart diuretics, 40 PO BID is her home dose, she is hypervolemic now and slightly tachypneic - Hold BB and NATASHA given hypotension and orthostatic syncope Mechanical MV, AV - Holding AC given SDH - Plan to repeat NCHCT in one week to assess for stability and can then resume AC Syncope: - Clearly orthostatic by history and marked baseline hypotension. Likely 2/2 low EF and aortic stenosis. She is planned for TTVR at [facility] but no benefit to EF or dizziness sypmtsom to be expected so can be arranged as planned as an outpatient SDH: - Small, no neuro deficits - Stable on imaging, repeat in 7 days - Hold AC, no need for AEDs Anemia: - Unclear etiology, normal iron stores. Per discussion with Maricel Weldon MD, she had normal endoscopy in the past year - Haptoglobin low, LDH/bili high, will consult heme to assess for hemolysis. Likely from valve shearing of RBCs - B12/folate ok Discharge plan pending Problems: Subjective 24 Hr Interval Summary Free Text/Dictation Feeling well today No headache no weeaknes Breathing is comfortable Discussed orthostatis and how she will have this issue chronically Exam/Review of Systems Vital Signs Vitals Vital Signs Date Time Temp Pulse Resp B/P Pulse Ox O2 Delivery O2 Flow Rate FiO2 03/18/17 15:49 98.6 88 18 97/52 100 03/16/17 20:00 Room Air Intake and Output 03/17/17 03/17/17 03/18/17 15:00 23:00 07:00 Intake Total 700 ml 300 ml Balance 700 ml 300 ml Exam ++ JVD Ecchymosis to face Breathing comfortably 2/6 systolic murmur, regular rr Ext with marked venous stasis dermatitis and some edema to calves Results Result Diagram: 03/18/17 0721 03/18/17 0721 Results 24 hrs Laboratory Tests Test 03/18/17 07:21 White Blood Count 3.7 #L Red Blood Count 2.17 L Hemoglobin 7.6 L Hematocrit 22.5 L Mean Corpuscular Volume 103.7 H Mean Corpuscular Hemoglobin 35.0 H Mean Corpuscular Hemoglobin Concent 33.8 Red Cell Distribution Width 17.3 H Platelet Count 125 L Mean Platelet Volume 10.2 Neutrophils % 52.1 Lymphocytes % 24.6 Monocytes % 16.5 H Eosinophils % 5.7 Basophils % 0.8 Nucleated Red Blood Cells % 0.0 Neutrophils # 1.9 Lymphocytes # 0.9 Monocytes # 0.6 Eosinophils # 0.2 Basophils # 0.0 Nucleated Red Blood Cells # 0.0 Sodium Level 139 Potassium Level 3.3 L Chloride Level 108 Carbon Dioxide Level 23 Anion Gap 11 Blood Urea Nitrogen 35 H Creatinine 1.21 H Glucose Level 90 Calcium Level 8.3 L Total Bilirubin 2.8 H Direct Bilirubin 0.00 Indirect Bilirubin 2.8 H Aspartate Amino Transf (AST/SGOT) 28 Alanine Aminotransferase (ALT/SGPT) 22 Alkaline Phosphatase 89 Total Protein 6.9 Albumin 3.0 L Globulin 3.90 H Albumin/Globulin Ratio 0.76 Medications Medications Current Medications Ondansetron HCl (Zofran Inj) 4 mg Q6H PRN IV NAUSEA AND/OR VOMITING; Start at 00:00 Acetaminophen (Tylenol Tab) 650 mg Q6H PRN PO PAIN LEVEL 1-3 OR FEVER; Start at 00:00 Morphine Sulfate (morphine) 2 mg Q4H PRN IV PAIN LEVEL 7-10; Start 03/16/17 at 00:00 Acetaminophen (Tylenol Tab) 650 mg Q4H PRN PO TEMP GREATER THAN 99.6F; Start at 00:00 Docusate Sodium (Colace) 100 mg BID PO Last administered on 03/16/17 21:43; Admin Dose 100 MG; Start 03/16/17 at 09:00 Pantoprazole (Protonix Tab) 40 mg DAILY@06 PO Last administered on 03/18/17 05 :57; Admin Dose 40 MG; Start 03/18/17 at 06:00 JENSEN VILLALOBOS MD Mar 18, 2017 16:07
[2017-03-18] MEDS ORDERED: POTASSIUM CHLORIDE (SR) 20 MEQ TAB PO STA (16:16)
[2017-03-19] VITALS (9 sets, daily range): BP systolic 82–91; BP diastolic 48–52; PULSE 69–101; RESP 15–20
[2017-03-19] MEDS: FUROSEMIDE 40 MG TAB PO SCH ×3 (05:55→17:52)
[2017-03-19] MEDS: PANTOPRAZOLE (EC) 40 MG TAB PO SCH (05:56)
[2017-03-19] MEDS: LEVOTHYROXINE 125 MCG TAB PO SCH (05:56)
[2017-03-19] MEDS: DOCUSATE SODIUM 100 MG CAP PO SCH (08:24)
[2017-03-19 12:21] LABS: BASOPHILS % 0.9 % (0.0-2.0); EOSINOPHILS # 0.3 10^3/ul (0.0-0.5); EOSINOPHILS % 7.2 % (0.0-7.0); HEMATOCRIT 22.9 % (37.0-47.0); HEMOGLOBIN 7.6 g/dl (12.0-16.0); LYMPHOCYTES # 0.9 10^3/ul (0.8-2.9); MEAN CORPUSCULAR HEMOGLOBIN 34.9 pg (29.0-33.0); MEAN CORPUSCULAR HGB CONC 33.2 g/dl (32.0-37.0); MEAN PLATELET VOLUME 10.1 fl (7.4-10.4); MONOCYTE # 0.6 10^3/ul (0.3-0.9); MONOCYTES % 17.1 % (0.0-11.0); NEUTROPHIL # 1.7 10^3/ul (1.6-7.5); NEUTROPHILS % 48.5 % (39.0-77.0); PLATELET COUNT 124 10^3/UL (140-415); RED BLOOD COUNT 2.18 10^6/ul (4.20-5.40); RED CELL DISTRIBUTION WIDTH 17.2 % (11.5-14.5); WHITE BLOOD COUNT 3.5 10^3/ul (4.8-10.8)
[2017-03-19 12:42] LABS: ALBUMIN 2.8 g/dl (3.3-4.9); ALBUMIN/GLOBULIN RATIO 0.77; BILIRUBIN,INDIRECT 2.4 mg/dl (0-1.1); BILIRUBIN,TOTAL 2.4 mg/dl (0.2-1.3); CALCIUM 8.1 mg/dl (8.4-10.2); CREATININE 1.13 mg/dl (0.44-1.00); POTASSIUM 3.7 mmol/L (3.5-5.1); TOTAL PROTEIN 6.4 g/dl (6.1-8.1)
--- NOTE | 2017-03-19 14:31 | RADRPT ---
PROCEDURE: CT head without intravenous contrast CLINICAL INDICATION: Follow-up subdural hemorrhage. COMPARISON: CT from 03/16/2017. TECHNIQUE: Axial CT images from skull base to vertex with coronal and sagittal reformats. DOSE: The estimated administered radiation dose was CTDI vol = 45 mGy. DLP = 720 mGy-cm. One or mor e of the following dose reduction techniques were used: automated exposure control, adjustment of th e mA and/or kV according to patient size, or use of iterative reconstruction. FINDINGS: Parenchyma: No large territorial infarction or mass. Mild amount of periventricular and subcortical white matter hypodensity, a nonspecific finding often associated with chronic microangiopathy. Ventricles: Mild generalized volume with proportionate ex vacuo ventricular dilation. Extra-axial spaces: 80 intermediate density subdural collection lateral to the right temporal lobe m easures 3 mm. Trace of residual subarachnoid hemorrhage overlying the right frontal convexity. No ne w hemorrhage. Paranasal sinuses: Mild paranasal sinus mucosal thickening. Mastoids and middle ears: Clear. Visualized orbits: Normal. Vessels: Mild calcified atherosclerotic arterial plaque. Bones: Normal. Extracranial soft tissues: Normal. Additional comment: None. IMPRESSION: 1. Continued expected evolution of small right temporal subdural hemorrhage. Size of the hemorrhage remains unchanged. 2. Continue expected evolution of right frontal subarachnoid hemorrhage. The hemorrhage is now barel y perceptible. No new hemorrhage. 3. Chronic senescent findings characterized by volume loss and white matter changes. RPTAT: AA Physician Edie Date Time Electronically viewed and signed by Physician Edie on 03/19/2017 14:31 LG/
--- NOTE | 2017-03-19 16:06 | PDOCDIS ---
Discharge Instructions DIAGNOSIS Discharge Diagnosis Subdural hematoma Syncope CONDITION Patient Condition: Fair HOME CARE INSTRUCTIONS: Diet Instructions: Reduced SodiumSpecial Diet: CARDIAC DIET ACTIVITY: Activity Restrictions Comment: Stand up very slowly to avoid fainting FOLLOW UP/APPOINTMENTS Follow-up Plan Follow up within one week with your doctor You should not take coumadin for the next 1 week until you can see your doctor. Our neurologists have recommended you have another head CT to ensure the bleeding around you brain has stopped completely prior to restarting coumadin. You have had two CT scans here which show the bleeding is stable It is improtant to understand that you will very likely continue to feel dizzy when you stand up or remain standing for a long period of time given the problems with your heart. You should always stand up very slowly, and if you feel dizzy, it is improtant to recognize your symptoms and sit down before you faint. Return to the emergency room if you have any concerning symptoms JENSEN VILLALOBOS MD Mar 19, 2017 16:06
--- NOTE | 2017-03-19 16:59 | CONS ---
Date/Time of Note Date/Time of Note DATE: 03/19/17 TIME: 16:56 Assessment/Plan Assessment/Plan Additional Assessment/Plan 66 year old female with history of multiple valve replacements, heart failure on Coumadin prior to arrival admitted with fall without LOC or seizure activity described. Stable right frontal SDH and right temporal SAH. No indication for AED ppx. Orthostatic being evaluated for possible valve replacement if she is candidate would recommend repeat CTH in about one week to determine if safe to resume anticoagulation, neurosurgery follow up -DVT ppx SCD -PT/OT/Speech Okay to DC home Consultation Date/Type/Reason Admit Date/Time Mar 15, 2017 at 23:44 Initial Consult Date 03/17/17 Type of Consultation: Neurology Reason for Consultation Subdural hematoma and subarachnoid hemorrhage 24 HR Interval Summary Free Text/Dictation Doing well Constitutional: no complaints Exam/Review of Systems Vital Signs Vitals Vital Signs Date Time Temp Pulse Resp B/P Pulse Ox O2 Delivery O2 Flow Rate FiO2 03/19/17 15:50 98.0 69 20 87/50 97 03/16/17 20:00 Room Air Intake and Output 03/18/17 03/18/17 03/19/17 15:00 23:00 07:00 Intake Total 1200 ml Balance 1200 ml Exam Constitutional: alert, well developed Psych: nl mood/affect, no complaints Head: atraumatic, normocephalic Eyes: EOMI, nl conjunctiva, nl lids ENMT: nl external ears & nose, nl lips & teeth Neck: non-tender, supple Respiratory: clear to auscultation, normal air movement Cardiovascular: nl pulses, regular rate and rhythm Gastrointestinal: nl liver, spleen, non-tender, soft Musculoskeletal: nl extremities to inspection Neurological: HEEL SEAM RUBBER II-XII intact, nl mental status, nl speech, other (Left wrist weakness) Results Result Diagram: 03/19/17 1159 03/19/17 1159 Results 24 hrs Laboratory Tests Test 03/19/17 11:59 White Blood Count 3.5 L Red Blood Count 2.18 L Hemoglobin 7.6 L Hematocrit 22.9 L Mean Corpuscular Volume 105.0 H Mean Corpuscular Hemoglobin 34.9 H Mean Corpuscular Hemoglobin Concent 33.2 Red Cell Distribution Width 17.2 H Platelet Count 124 L Mean Platelet Volume 10.1 Neutrophils % 48.5 Lymphocytes % 26.0 Monocytes % 17.1 H Eosinophils % 7.2 H Basophils % 0.9 Nucleated Red Blood Cells % 0.0 Neutrophils # 1.7 Lymphocytes # 0.9 Monocytes # 0.6 Eosinophils # 0.3 Basophils # 0.0 Nucleated Red Blood Cells # 0.0 Sodium Level 138 Potassium Level 3.7 Chloride Level 107 Carbon Dioxide Level 26 Anion Gap 9 Blood Urea Nitrogen 30 H Creatinine 1.13 H Glucose Level 88 Calcium Level 8.1 L Total Bilirubin 2.4 H Direct Bilirubin 0.00 Indirect Bilirubin 2.4 H Aspartate Amino Transf (AST/SGOT) 28 Alanine Aminotransferase (ALT/SGPT) 24 Alkaline Phosphatase 87 Total Protein 6.4 Albumin 2.8 L Globulin 3.60 H Albumin/Globulin Ratio 0.77 Medications Medications Current Medications Ondansetron HCl (Zofran Inj) 4 mg Q6H PRN IV NAUSEA AND/OR VOMITING; Start at 00:00 Acetaminophen (Tylenol Tab) 650 mg Q6H PRN PO PAIN LEVEL 1-3 OR FEVER Last administered on 03/19/17 08:24; Admin Dose 650 MG; Start 03/16/17 at 00:00 Morphine Sulfate (morphine) 2 mg Q4H PRN IV PAIN LEVEL 7-10; Start 03/16/17 at 00:00 Acetaminophen (Tylenol Tab) 650 mg Q4H PRN PO TEMP GREATER THAN 99.6F; Start at 00:00 Docusate Sodium (Colace) 100 mg BID PO Last administered on 03/16/17 21:43; Admin Dose 100 MG; Start 03/16/17 at 09:00 Pantoprazole (Protonix Tab) 40 mg DAILY@06 PO Last administered on 03/19/17 05 :56; Admin Dose 40 MG; Start 03/18/17 at 06:00 JULITO BAUM MD Mar 19, 2017 16:59
--- NOTE | 2017-03-19 17:32 | DS ---
Date/Time of Note Date/Time of Note DATE: 03/19/17 TIME: 17:29 Discharge Summary Admission/Discharge Info Admit Date/Time Mar 15, 2017 at 23:44 Discharge Date/Time Discharge Diagnosis Subdural hematoma Syncope Patient Condition: Fair Hx of Present Illness Chief complaint: Fall This is a 66-year-old female with a history of hypothyroidism and multiple heart valve replacements, and heart failure transferred from [place] emergency room for higher level of care. The patient reportedly fell about 4 days ago at home. She was taken to the ER and diagnosed with a left wrist fracture which was splinted. Her CT had at that time was normal. Yesterday, she had another fall. At That time she had loss of consciousness. She was taken to the ER, where she was found to have a small subdural hemorrhage and subarachnoid hemorrhage. The patient has not been having any vomiting. She does complain of a 6 out of 10 throbbing headache which has not changed. Prior to the patient 's arrival, the neurosurgeon was notified and is accepting the patient here. She denies any focal weakness or numbness. Per her family, she is acting normally. As she is on Coumadin, she received K [facility] and vitamin K prior to transfer. Patient does state that she is a DNR. Allergies: Aspirin, ceftriaxone, hydralazine, penicillin Medications: See AUG Hospital Course 66 yo female with chronic systolic CHF, s/p AVR/MVR/TVR who presents with recurrent syncope leading to wrist fracture and small subdural hematoma as well as acute on chornic CHF exacerbation CHF, syncope: - The patient was restarted on her home diuretics of lasix 40 BID SHe was seen by Dr Huerta who coordinated care with her [facility] cardiology team. Confirmed that planned procedure is a TTVR to address liver and edema issues, but would not do much to benefit her EF or problems with orthostasis. She was counseled extensively on behavioral modifications to prevent orthostatic syncope. She will follow up with her cardiologsit at [facility]. It was recommended that she not take coumadin for 1 week and to address re- inititation of AC with her doctor at that point. She underwent serial CT scans of her head which showed stablity of her bleed and there was no need for intervention. Anemia was investigated and thought to be 2/2 hemolysis from RBC shearing against her heart valves Home Meds Reported Medications Metoprolol Tartrate* (Lopressor*) 50 Mg Tab, 50 MG PO BID for HTN, #60 TAB 03/16/17 Loratadine* (Loratadine*) 10 Mg Tablet, 10 MG PO DAILY for ALLERGIC REACTION, # 30 TAB 03/16/17 Levothyroxine Sodium* (Levothyroxine Sodium*) 125 Mcg Tablet, 125 MCG PO BEFORE BREAKFAST, #30 TAB 03/16/17 Furosemide* (Furosemide*) 40 Mg Tablet, 40 MG PO BID, TAB take 1 tablet by mouth 2 times a day 03/16/17 Ergocalciferol (Vitamin D2) (VITAMIN D2) 50,000 Unit Capsule, 16811 UNIT PO once a month, CAP 03/16/17 Denosumab (Prolia) 60 Mg/1 Ml Disp.syrin, 60 MG SQ Q6 Months subcutaneous q6 months 03/16/17 Calcitriol* (Rocaltrol*) 0.25 Mcg Capsule, 0.25 MCG PO DAILY, CAP 03/16/17 Discontinued Reported Medications Warfarin Sodium* (Warfarin Sodium*) 4 Mg Tablet, 4 MG PO DAILY, TAB 03/16/17 Follow-up Plan Follow up within one week with your doctor You should not take coumadin for the next 1 week until you can see your doctor. Our neurologists have recommended you have another head CT to ensure the bleeding around you brain has stopped completely prior to restarting coumadin. You have had two CT scans here which show the bleeding is stable It is improtant to understand that you will very likely continue to feel dizzy when you stand up or remain standing for a long period of time given the problems with your heart. You should always stand up very slowly, and if you feel dizzy, it is improtant to recognize your symptoms and sit down before you faint. Return to the emergency room if you have any concerning symptoms Primary Care Provider Not On Staff Doctor Time spent on discharge: > 30 minutes Pending Labs Laboratory Tests Test 03/19/17 11:59 White Blood Count 3.510^3/ul (4.8-10.8) Red Blood Count 2.1810^6/ul (4.20-5.40) Hemoglobin 7.6g/dl (12.0-16.0) Hematocrit 22.9% (37.0-47.0) Mean Corpuscular Volume 105.0fl (82.0-101.0) Mean Corpuscular Hemoglobin 34.9pg (29.0-33.0) Mean Corpuscular Hemoglobin Concent 33.2g/dl (32.0-37.0) Red Cell Distribution Width 17.2% (11.5-14.5) Platelet Count 76779^3/UL (140-415) Mean Platelet Volume 10.1fl (7.4-10.4) Neutrophils % 48.5% (39.0-77.0) Lymphocytes % 26.0% (15.0-51.0) Monocytes % 17.1% (0.0-11.0) Eosinophils % 7.2% (0.0-7.0) Basophils % 0.9% (0.0-2.0) Nucleated Red Blood Cells % 0.0/100WBC (0.0-0.0) Neutrophils # 1.710^3/ul (1.6-7.5) Lymphocytes # 0.910^3/ul (0.8-2.9) Monocytes # 0.610^3/ul (0.3-0.9) Eosinophils # 0.310^3/ul (0.0-0.5) Basophils # 0.010^3/ul (0.0-0.1) Nucleated Red Blood Cells # 0.010^3/ul (0.0-0.0) Sodium Level 138mmol/L (135-144) Potassium Level 3.7mmol/L (3.5-5.1) Chloride Level 107mmol/L (97-110) Carbon Dioxide Level 26mmol/L (21-31) Anion Gap 9 (8-16) Blood Urea Nitrogen 30mg/dl (7-20) Creatinine 1.13mg/dl (0.44-1.00) Glucose Level 88mg/dl (70-220) Calcium Level 8.1mg/dl (8.4-10.2) Total Bilirubin 2.4mg/dl (0.2-1.3) Direct Bilirubin 0.00mg/dl (0.00-0.20) Indirect Bilirubin 2.4mg/dl (0-1.1) Aspartate Amino Transf (AST/SGOT) 28IU/L (15-46) Alanine Aminotransferase (ALT/SGPT) 24IU/L (13-69) Alkaline Phosphatase 87IU/L (42-121) Total Protein 6.4g/dl (6.1-8.1) Albumin 2.8g/dl (3.3-4.9) Globulin 3.60g/dl (1.3-3.2) Albumin/Globulin Ratio 0.77 JENSEN VILLALOBOS MD Mar 19, 2017 17:31
--- NOTE | 2017-03-19 21:30 | CONS ---
Date/Time of Note Date/Time of Note DATE: 03/19/17 TIME: 21:15 Assessment/Plan Assessment/Plan Chief Complaint/Hosp Course #Macrocytic Anemia -pt has no evidence of Vitamin b12 or folate deficiency -low haptoglobin is indicative of hemolysis from mechanical shear forces. this is also suggested by high LDH -macrocytosis is likely from the reticulocytosis as the bone marrow is trying to compensate - there is no real intervention other than to transfuse as needed. #CHF -pt has been appropriately diuresed and will be discharged pt to f/u at [facility] Problems: Consultation Date/Type/Reason Admit Date/Time Mar 15, 2017 at 23:44 Date of Consultation: Mar 19, 2017 Type of Consultation: Hematology Reason for Consultation hemolytic anemia Referring Provider: JENSEN VILLALOBOS MD Hx of Present Illness 66-year-old female with history multiple heart valve replacement and CHF who presented to [place] ER after fall 4 days prior to presentation. PT was subsequently transferred to [facility]. Head CT revealed evidence of small subdural hemorrhage. Pt had been on Coumadin for her MVR and received [facility] and Vitamin K prior to transfer from [place]. On presentation to [facility] pt was found to be severely anemic with a Hg 7.5. Haptoglobin was drawn and < 15. We have been consulted given concern for hemolytic anemia. Constitutional: no complaints Eyes: no complaints ENT: no complaints Respiratory: no complaints Cardiovascular: no complaints Gastrointestinal: no complaints Musculoskeletal: bone/joint pain Psychological: nl mood/affect, no complaints Past Medical History CHR s/p MVR seasonal allergies Bilateral lower extremity venous stasis/edema hypothyroidism chronic kidney disease Past Surgical History Past Surgical Hx: other (sternotomy x 2) Family History Significant Family History: no pertinent family hx Social History Alcohol Use: none Smoking Status: Never smoker Drug Use: none Exam/Review of Systems Vital Signs Vitals Vital Signs Date Time Temp Pulse Resp B/P Pulse Ox O2 Delivery O2 Flow Rate FiO2 03/19/17 16:02 89 03/19/17 15:50 98.0 20 87/50 97 03/16/17 20:00 Room Air Intake and Output 03/18/17 03/18/17 03/19/17 15:00 23:00 07:00 Intake Total 1200 ml Balance 1200 ml Exam Constitutional: alert, oriented Psych: no complaints Head: normocephalic Eyes: nl conjunctiva ENMT: nl external ears & nose Neck: supple Respiratory: clear to auscultation Cardiovascular: other (mechanical heart sounds), regular rate and rhythm Gastrointestinal: soft Results Result Diagram: 03/19/17 1159 03/19/17 1159 Results 24 hrs Laboratory Tests Test 03/19/17 11:59 White Blood Count 3.5 L Red Blood Count 2.18 L Hemoglobin 7.6 L Hematocrit 22.9 L Mean Corpuscular Volume 105.0 H Mean Corpuscular Hemoglobin 34.9 H Mean Corpuscular Hemoglobin Concent 33.2 Red Cell Distribution Width 17.2 H Platelet Count 124 L Mean Platelet Volume 10.1 Neutrophils % 48.5 Lymphocytes % 26.0 Monocytes % 17.1 H Eosinophils % 7.2 H Basophils % 0.9 Nucleated Red Blood Cells % 0.0 Neutrophils # 1.7 Lymphocytes # 0.9 Monocytes # 0.6 Eosinophils # 0.3 Basophils # 0.0 Nucleated Red Blood Cells # 0.0 Sodium Level 138 Potassium Level 3.7 Chloride Level 107 Carbon Dioxide Level 26 Anion Gap 9 Blood Urea Nitrogen 30 H Creatinine 1.13 H Glucose Level 88 Calcium Level 8.1 L Total Bilirubin 2.4 H Direct Bilirubin 0.00 Indirect Bilirubin 2.4 H Aspartate Amino Transf (AST/SGOT) 28 Alanine Aminotransferase (ALT/SGPT) 24 Alkaline Phosphatase 87 Total Protein 6.4 Albumin 2.8 L Globulin 3.60 H Albumin/Globulin Ratio 0.77 RUTHANN ELKINS M.D. Mar 19, 2017 21:26
== END 2017-03-19 17:45 | disposition home health service (06) | DRG 85 ==
LOC: E/R 21:50 → ICU 23:44 → MS4 03-16 22:32
PROVIDERS: ADMIT Family Medicine; ATTEND Family Medicine
DX: S06.6X1A Traumatic subarachnoid hemorrhage with loss of consciousness of 30 minutes or less, initial encounter (principal); I50.23 Acute on chronic systolic (congestive) heart failure; I13.0 Hypertensive heart and chronic kidney disease with heart failure and stage 1 through stage 4 chronic kidney disease, or unspecified chronic kidney disease; S06.5X1A Traumatic subdural hemorrhage with loss of consciousness of 30 minutes or less, initial encounter; Z95.2 Presence of prosthetic heart valve; Z66 Do not resuscitate; S62.102D Fracture of unspecified carpal bone, left wrist, subsequent encounter for fracture with routine healing; Z91.81 History of falling; E03.9 Hypothyroidism, unspecified; Z79.01 Long term (current) use of anticoagulants; S42.031A Displaced fracture of lateral end of right clavicle, initial encounter for closed fracture; I87.8 Other specified disorders of veins; Z95.810 Presence of automatic (implantable) cardiac defibrillator; N18.3 Chronic kidney disease, stage 3 (moderate)
CPT/HCPCS: 70450; 71010; 73000; 73090; 80048; 80053; 80076; 82247; 82248; 82607; 82728; 82746; 83010; 83540; 83615; 83735; 83921; 85025; 85610; 85730; 86850; 86880; 86885; 86900; 86901; 87081; 92523; 92610; 93306; 93880; 97162; C9113; J3480; J7040; J7050